=== PATIENT | male | born 1980 | race Caucasian/White ===

== ENCOUNTER 2017-01-07 16:13 | Emergency (ER) | payer SELFPAY ==
[~2017-01-07] VITALS: Ht 160 cm; Wt 74.4 kg
[~2017-01-07 16:13] MED LIST: CIPRO250 MG PO; FLAGYL500 MG PO; LAC PO; NORCO1 TA2 PO
[2017-01-07 18:47] VITALS: BP 135/79
== END 2017-01-07 18:47 | disposition home or self-care (01) ==
LOC: ED 16:13
DX: T15.01XA Foreign body in cornea, right eye, initial encounter (principal)

== ENCOUNTER 2017-01-11 20:05 | Emergency (ER) | payer SELFPAY ==
[~2017-01-11] VITALS: Ht 165.1 cm; Wt 72.1 kg
[2017-01-11 22:57] VITALS: BP 129/84
== END 2017-01-11 22:57 | disposition home or self-care (01) ==
LOC: ED 20:05
DX: H11.31 Conjunctival hemorrhage, right eye (principal)

== ENCOUNTER 2018-03-26 18:39 | Emergency (ER) | payer MEDICAID ==
[~2018-03-26] VITALS: Ht 165.1 cm; Wt 73.0 kg
[2018-03-26 18:41] VITALS: Ht 165.1 cm; Wt 73.0 kg
[2018-03-26 21:15] LABS: CALCIUM 9.3 mg/dL (8.5-10.1); CARBON DIOXIDE 26.1 mmol/L (21-32); CHLORIDE SERUM 103 mmol/L (98-107); CREATININE SERUM 0.9 mg/dL (0.7-1.3); GFR1 > 60 mL/min; GLUCOSE SERUM 101 mg/dL (74-106); POTASSIUM SERUM 3.8 mmol/L (3.5-5.1); SODIUM SERUM 139 mmol/L (136-145)
[2018-03-26 21:20] LABS: ALKALINE PHOSPHATASE 69 U/L (46-116); ALT/SGPT 32 U/L (16-63); AST/SGOT 15 U/L (15-37); BILIRUBIN TOTAL 0.4 mg/dL (0.20-1.00); TOTAL PROTEIN, SERUM 8.1 g/dL (6.4-8.2)
[2018-03-26 21:21] LABS: PLATELET COUNT 309 x10^3mcL (130-400); RED CELL DISTRIBUTION WIDTH 12.8 % (11.5-14.5)
[2018-03-26 21:26] LABS: UA SPECIFIC GRAVITY 1.015 (1.005-1.035); microscopic required? YES; urine erythrocyte 1+ (NEGATIVE)
[2018-03-27 01:13] VITALS: BP 123/81
== END 2018-03-27 01:13 | disposition home or self-care (01) ==
LOC: ED 18:39
PROVIDERS: Emergency Medicine
DX: R42 Dizziness and giddiness (principal); H93.13 Tinnitus, bilateral
CPT/HCPCS: 36415; J8597

== ENCOUNTER 2019-01-23 17:00 | Emergency (ER) | payer SELFPAY ==
[~2019-01-23] VITALS: Ht 160 cm; Wt 63.5 kg
[2019-01-23 17:06] VITALS: BP 130/89; Ht 160 cm; Wt 63.5 kg
== END 2019-01-23 17:50 | disposition home or self-care (01) ==
LOC: ED 17:00
DX: M54.5 Low back pain (principal); G89.29 Other chronic pain; M23.91 Unspecified internal derangement of right knee
CPT/HCPCS: J1885

== ENCOUNTER 2019-06-23 16:35 | Emergency (ER) | payer MEDICAID ==
[~2019-06-23] VITALS: Ht 167.6 cm; Wt 75.3 kg
[2019-06-23 16:44] VITALS: Ht 167.6 cm; Wt 75.3 kg
[2019-06-23 17:38] VITALS: BP 139/92
== END 2019-06-23 17:38 | disposition home or self-care (01) ==
LOC: ED 16:35
DX: T15.01XA Foreign body in cornea, right eye, initial encounter (principal); Z88.6 Allergy status to analgesic agent; Z88.5 Allergy status to narcotic agent; W45.8XXA Other foreign body or object entering through skin, initial encounter; Y93.89 Activity, other specified; Y92.89 Other specified places as the place of occurrence of the external cause; Y99.8 Other external cause status
CPT/HCPCS: 90715